=== PATIENT | male | born 1950 | race Caucasian/White ===

== ENCOUNTER 2016-12-26 03:32 | Inpatient (IN) | payer OTHER ==
[~2016-12-26] VITALS: Ht 165.1 cm; Wt 77.7 kg
[2016-12-26 04:27] LABS: BASOPHIL % 0.3 % (0-2); PLATELET COUNT 245 x10^3mcL (130-400)
[2016-12-26 04:28] LABS: RED CELL DISTRIBUTION WIDTH 15.6 % (11.5-14.5)
[2016-12-26 04:41] LABS: CALCIUM 9.1 mg/dL (8.5-10.1); CARBON DIOXIDE 24.4 mmol/L (21-32); CREATININE SERUM 1.4 mg/dL (0.7-1.3); POTASSIUM SERUM 4.4 mmol/L (3.5-5.1)
[2016-12-26 04:55] LABS: BILIRUBIN TOTAL 0.33 mg/dL (0.20-1.00); MAGNESIUM 1.8 mg/dL (1.8-2.4); TOTAL PROTEIN, SERUM 7.1 g/dL (6.4-8.2)
[2016-12-26 04:56] LABS: ALBUMIN 3.2 g/dL (3.4-5.0)
[2016-12-26] MEDS ORDERED: PLA75 PO (05:50)
[2016-12-26] MEDS ORDERED: COZAAR50 M1 PO (05:51)
[2016-12-26] MEDS ORDERED: TOPROL XL25 MG PO (05:51)
[2016-12-26] MEDS ORDERED: SIMVASTATIN80 M1 PO (05:51)
[2016-12-26 07:38] LABS: PHOSPHOROUS 3.6 mg/dL (2.5-4.9)
[2016-12-26 07:43] LABS: CHOLESTEROL/HDL RATIO 2.5
[2016-12-26 07:54] LABS: FREE T4 1.15 ng/dL (0.76-1.46); FREE THYROXINE INDEX 3.3 ug/dL (1.4-4.5); T4(THYROXINE) 8.8 ug/dL (4.7-13.3)
[2016-12-26 08:07] LABS: T3 TOTAL 1.05 ng/mL
[2016-12-26 08:16] VITALS: BP 140/93
[2016-12-26 09:36] VITALS: BP 140/93
[2016-12-26 09:43] VITALS: BP 140/93
[2016-12-26] MEDS ORDERED: METOPROLOL TARTRATE PO (12:22)
[2016-12-26] MEDS ORDERED: GOOD SENSE ASP325 MG PO (12:25)
[2016-12-26 13:03] LABS: microscopic required? YES; urine erythrocyte 2+ (NEGATIVE)
[2016-12-26 13:18] LABS: AMPHETAMINE QUAL UR NONE DETECTED (NEG <=1000)
[2016-12-26 13:38] VITALS: BP 121/78
[2016-12-26] MEDS ORDERED: METOPROLOL TART25 M1 PO (15:30)
[2016-12-26] MEDS ORDERED: LIPITOR80 MG PO (15:30)
[2016-12-26] MEDS ORDERED: ZES5 PO (15:32)
[2016-12-26] MEDS ORDERED: ECO81 PO (15:33)
[2016-12-26 15:38] VITALS: BP 121/78
[2016-12-26 17:36] VITALS: BP 113/72
[2016-12-26] MEDS ORDERED: HEP5I IV (20:43)
[2016-12-26] MEDS ORDERED: NIT0.4 SL (20:43)
[2016-12-26] MEDS ORDERED: IPRATROPIUM BROM3 M2 HHN (20:43)
== END 2016-12-26 21:00 | disposition short-term general hospital (02) | DRG 291 ==
LOC: ED 03:32 → DU 05:39
PROVIDERS: Emergency Medicine; ADMIT Family Medicine
DX: I50.43 Acute on chronic combined systolic (congestive) and diastolic (congestive) heart failure (principal); N17.0 Acute kidney failure with tubular necrosis; E44.0 Moderate protein-calorie malnutrition; I24.9 Acute ischemic heart disease, unspecified; K44.9 Diaphragmatic hernia without obstruction or gangrene; R91.8 Other nonspecific abnormal finding of lung field; R31.9 Hematuria, unspecified; M40.294 Other kyphosis, thoracic region; R73.03 Prediabetes; M25.78 Osteophyte, vertebrae; I25.2 Old myocardial infarction; Z68.28 Body mass index [BMI] 28.0-28.9, adult; Z95.5 Presence of coronary angioplasty implant and graft
CPT/HCPCS: 83880; 84439; J1644; J7030; J7040; J7050; J7620; Q9967